=== PATIENT | male | born 1945 | race Caucasian/White ===

== ENCOUNTER 2020-12-24 13:34 | Inpatient (IN) | payer OTHER ==
[~2020-12-24] VITALS: Ht 177.8 cm; Wt 101.8 kg
[2020-12-24 14:38] LABS: HEMOGLOBIN 16.5 gm/dl (14.0-17.5); RED BLOOD COUNT 5.23 M/UL (4.20-5.50); WHITE BLOOD COUNT 10.3 K/UL (4.5-11.0)
[2020-12-24 14:57] LABS: BUN/CREATININE RATIO 15 (0-10)
[2020-12-24] MEDS ORDERED: HYDROCHLOROTHIA25 MG PO (16:14)
[2020-12-24] MEDS ORDERED: AMLODIPINE BESYL5 MG PO (16:14)
[2020-12-24] MEDS ORDERED: FLONASE 0.05% N16 GM (16:14)
[2020-12-24] MEDS ORDERED: LEVOTHYROXINE25 MC1 PO (16:14)
[2020-12-24] MEDS ORDERED: ZESTRIL/PRINIVI10 MG PO (16:15)
[2020-12-24] MEDS ORDERED: VICTOZA 3-0.6 MG/0.1 SQ (16:15)
[2020-12-24] MEDS ORDERED: BUPRENORPHIN-N1 EACH SL (16:16)
[2020-12-24] MEDS ORDERED: CRESTOR20 MG PO (16:16)
[2020-12-24] MEDS ORDERED: LOPRESSOR100 MG PO (16:16)
[2020-12-24] MEDS ORDERED: GABAPENTIN400 MG PO (16:17)
[2020-12-24] MEDS ORDERED: LINZESS145 MCG PO (16:17)
[2020-12-24] MEDS ORDERED: VENTOLIN HFA 66.7 GM INH (16:18)
[2020-12-24] MEDS ORDERED: FLOMAX 0.4 MG0.4 MG PO (16:18)
[2020-12-24] MEDS ORDERED: ALBUTEROL2.5 MG/3 M INH (16:18)
[2020-12-24] MEDS ORDERED: LANTUS100 UNIT/1 SC (16:34)
[2020-12-24] MEDS ORDERED: HARD NAILS2500 MCG PO (16:35)
[2020-12-24] MEDS ORDERED: ASPIRIN81 MG PO (16:35)
[2020-12-24] MEDS ORDERED: DAILY VALUE1 EACH PO (16:35)
--- NOTE | 2020-12-25 06:32 | NUR ---
NOHEMI STEVENS, AND I HAD WENT INTO THE PATIENT'S ROOM TO CHANGE OUT OF HIS CLOTHES INTO A NEW GOWN. PATIENT'S HAD STATED THAT HIS MEDICATION WAS IN HIS POCKET. NONE OF US HAD TAKEN HIS NEUROTIN NOR SUBOXONE OUT OF HIS POCKET. WE HAD SEARCHED THE ROOM AND HOUSE WAS NOTIFIED. HIS MEDICATION LIST WAS COMPLETED IN ER. POSSIBILITY THAT MEDICATION WAS LEFT DOWN THERE.
--- NOTE | 2020-12-25 14:56 | NUR ---
REPORT CALLED TO [facility] , WAITING ON BED TO BE CLEANED ON MED-SURG NOTED
[2020-12-26] MEDS ORDERED: LEVOFLOXACIN750 MG PO (12:09)
[2020-12-26] MEDS ORDERED: NARCAN4 MG INH (12:16)
--- NOTE | 2020-12-27 18:30 | NUR ---
REPORT CALLED TO [facility] NURSE GIAN.
== END 2020-12-27 18:16 | disposition home or self-care (01) | DRG 177 ==
LOC: ER1 13:34 → MED SURG 4 16:04 → CDU 16:04 → PROG CARE 18:19 → MED SURG 4 12-25 16:03
PROVIDERS: Preventive Medicine Occupational Medicine; ADMIT Internal Medicine
PROC: 5A09357 Assistance with Respiratory Ventilation, Less than 24 Consecutive Hours, Continuous Positive Airway Pressure (ICD-10-PCS; principal; 2020-12-24)
DX: J69.0 Pneumonitis due to inhalation of food and vomit (principal); J96.21 Acute and chronic respiratory failure with hypoxia; G93.41 Metabolic encephalopathy; Z20.822 Contact with and (suspected) exposure to COVID-19; J90 Pleural effusion, not elsewhere classified; J44.0 Chronic obstructive pulmonary disease with (acute) lower respiratory infection; E66.2 Morbid (severe) obesity with alveolar hypoventilation; J15.6 Pneumonia due to other Gram-negative bacteria; E11.9 Type 2 diabetes mellitus without complications; I10 Essential (primary) hypertension; F17.210 Nicotine dependence, cigarettes, uncomplicated; J34.89 Other specified disorders of nose and nasal sinuses; F32.9 Major depressive disorder, single episode, unspecified; Z71.6 Tobacco abuse counseling; Z79.891 Long term (current) use of opiate analgesic; Z82.49 Family history of ischemic heart disease and other diseases of the circulatory system; Z79.899 Other long term (current) drug therapy; Z79.82 Long term (current) use of aspirin; Z68.32 Body mass index [BMI] 32.0-32.9, adult
CPT/HCPCS: 0240U; 36415; 36600; 71045; 80048; 80053; 81001; 82550; 82553; 82803; 82962; 83036; 83605; 83690; 83874; 83880; 84439; 84443; 84484; 85025; 85652; 86140; 87086; 93005; 94640; 94660; 94664; 94760; 96374; 96375; 97116; 97161; 99285; J0456; J0696; J1650; J2543; J2930; J7030